=== PATIENT | female | born 1960 | race Caucasian/White ===

== ENCOUNTER 2017-02-16 20:09 | Emergency (ER) | payer OTHER ==
[~2017-02-16 20:09] MED LIST: CENTRUM TABLET1 TAB; FLEXERIL10 MG PO; HYDROCODONE/APA1 TAB; IBU-200200 MG; MOTRIN800 MG PO; NORCO 5/325 TAB1 TAB PO; PRILOSEC OTC20 MG
[2017-02-16] MEDS ORDERED: GLUCOPHAGE500 M3 PO (20:34)
[2017-02-16] MEDS ORDERED: GLUCOTROL5 M1 PO (20:35)
[2017-02-16] MEDS ORDERED: LISINOPRIL10 M1 PO (20:36)
[2017-02-16] MEDS ORDERED: IBUPROFEN800 M1 PO (21:16)
== END 2017-02-16 21:27 ==
LOC: EDMED 20:09
DX: S29.012A Strain of muscle and tendon of back wall of thorax, initial encounter (principal); E11.9 Type 2 diabetes mellitus without complications; I10 Essential (primary) hypertension; K21.9 Gastro-esophageal reflux disease without esophagitis; Z87.891 Personal history of nicotine dependence; Z79.899 Other long term (current) drug therapy; X50.1XXA Overexertion from prolonged static or awkward postures, initial encounter; Y93.89 Activity, other specified; Y92.69 Other specified industrial and construction area as the place of occurrence of the external cause; Y99.0 Civilian activity done for income or pay